=== PATIENT | female | born 1965 | race Caucasian/White ===

== ENCOUNTER 2018-05-04 19:24 | Emergency (ER) | payer MEDICAID ==
[~2018-05-04] VITALS: Ht 149.9 cm; Wt 55.0 kg
[2018-05-04] MEDS ORDERED: KETOROLAC 60MG/2ML VIAL IM ONE (22:45)
[2018-05-04 22:54] VITALS: BP 130/70
== END 2018-05-05 00:18 | disposition home or self-care (01) ==
LOC: ER 19:24
DX: H00.034 Abscess of left upper eyelid (principal); R03.0 Elevated blood-pressure reading, without diagnosis of hypertension; Z90.49 Acquired absence of other specified parts of digestive tract; Z90.710 Acquired absence of both cervix and uterus
CPT/HCPCS: 96372; 99283; J1885

== ENCOUNTER 2021-07-17 02:31 | Emergency (ER) | payer MEDICAID ==
[~2021-07-17] VITALS: Ht 160 cm; Wt 59.0 kg
[2021-07-17 03:02] VITALS: BP 129/63
[2021-07-17 05:38] LABS: CLARITY URINE CLOUDY (CLEAR); COLOR URINE YELLOW (YELLOW); KETONES URINE NEGATIVE (NEGATIVE); LEUKOCYTE ESTERASE URINE 3+ (NEGATIVE); NITRITE URINE NEGATIVE (NEGATIVE); OCCULT BLOOD URINE 3+ (NEGATIVE); PROTEIN URINE NEGATIVE (NEGATIVE); SPECIFIC GRAVITY URINE 1.004 (1.005-1.030); UROBILINOGEN URINE 0.2 E.U./dL (0.2-1.0)
[2021-07-17] MEDS ORDERED: PHEN95TA25 MT (06:04)
[2021-07-17] MEDS ORDERED: CIPR500T5 MT (06:04)
== END 2021-07-17 06:34 | disposition home or self-care (01) ==
LOC: ER 02:31
DX: N39.0 Urinary tract infection, site not specified (principal); Z90.49 Acquired absence of other specified parts of digestive tract; Z98.890 Other specified postprocedural states
CPT/HCPCS: 81003; 87077; 87186; 87210; 99283

== ENCOUNTER 2024-02-06 06:51 | Emergency (ER) | payer MEDICAID ==
[~2024-02-06] VITALS: Ht 154.9 cm; Wt 64.0 kg
[~2024-02-06 06:51] MED LIST: CIPR500T5 MT; PHEN95TA25 MT
[2024-02-06 07:01] VITALS: BP 144/78; PULSE 98; RESP 14; O2SAT 100
[2024-02-06 07:37] LABS: BASOPHILS % 0.8 % (0.0-2.0); EOSINOPHILS % 2.3 % (0.0-5.0); HEMATOCRIT. 39.5 % (36.0-48.0); HEMOGLOBIN. 13.8 g/dL (12.0-16.0); LYMPHOCYTES % 40.1 % (20.0-50.0); MEAN CORPUSCULAR HEMOGLOBIN 32.7 pg (28.0-32.0); MEAN CORPUSCULAR VOLUME 93.6 fL (81.0-99.0); MEAN PLATELET VOLUME 9.7 fl (7.4-10.4); MONOCYTES % 7.7 % (2.0-8.0); NEUTROPHILS % 49.1 % (40.0-76.0); PLATELET 179 x1000/uL (130-400); RED BLOOD CELL COUNT 4.22 mill/uL (4.2-5.4); RED CELL DISTRIBUTION WIDTH 12.8 % (11.6-14.6)
[2024-02-06 07:43] LABS: CHLORIDE 107 mEq/L (98-107); POTASSIUM 3.6 mEq/L (3.5-5.1); SODIUM 140 mEq/L (136-145)
[2024-02-06 07:44] LABS: CALCIUM 9.3 mg/dL (8.7-10.4); CARBON DIOXIDE 24 mEq/L (21-32)
[2024-02-06 07:49] LABS: CREATININE 0.7 mg/dL (0.6-1.0); GLUCOSE 142 mg/dL (70-105); UREA NITROGEN BLOOD 9 mg/dL (9-23)
[2024-02-06 07:51] LABS: ALANINE AMINOTRANSFERASE 21 IU/L (10-49); ALBUMIN 4.3 g/dL (3.2-4.8); ASPARTATE AMINOTRANSFERASE 21 IU/L (<34); BILIRUBIN TOTAL 0.4 mg/dL (0.1-1.0); PROTEIN TOTAL 6.7 g/dL (6.0-8.3)
[2024-02-06] MEDS: MAGNESIUM/ALUMINUM HYDROXIDE/SIMETHICONE 30ML UDC PO ONE (07:54)
[2024-02-06] MEDS: FAMOTIDINE 20MG TABLET PO ONE (07:54)
[2024-02-06 07:55] VITALS: TEMP 98.2
[2024-02-06] MEDS: ACETAMINOPHEN 500MG TABLET PO ONE (07:55)
[2024-02-06 08:25] LABS: BILIRUBIN DIRECT < 0.1 mg/dL (<=3.0)
[2024-02-06 11:10] LABS: CLARITY URINE CLEAR (CLEAR); COLOR URINE YELLOW (YELLOW); GLUCOSE URINE NEGATIVE (NEGATIVE); KETONES URINE NEGATIVE (NEGATIVE); LEUKOCYTE ESTERASE URINE 2+ (NEGATIVE); NITRITE URINE NEGATIVE (NEGATIVE); OCCULT BLOOD URINE NEGATIVE (NEGATIVE); PH URINE 5.5 (4.5-8.0); PROTEIN URINE NEGATIVE (NEGATIVE); SPECIFIC GRAVITY URINE 1.012 (1.005-1.030); UROBILINOGEN URINE 0.2 E.U./dL (0.2-1.0)
[2024-02-06 11:27] LABS: MUCUS URINE 1+ /lpf (< = 2+); SQUAMOUS EPITHELIAL CELL URINE 2+ /lpf (RARE/1+)
[2024-02-06 11:28] LABS: BACTERIA URINE TRACE
[2024-02-06 11:29] LABS: RBC URINE 0-2 /hpf (0-2)
== END 2024-02-06 13:40 | disposition home or self-care (01) ==
LOC: ER 06:51
DX: R10.13 Epigastric pain (principal); M19.90 Unspecified osteoarthritis, unspecified site; Z90.49 Acquired absence of other specified parts of digestive tract; Z98.890 Other specified postprocedural states
CPT/HCPCS: 36415; 71045; 74176; 80048; 80076; 81003; 81025; 85025; 93005; 99285

== ENCOUNTER 2024-08-16 06:58 | Emergency (ER) | payer MEDICAID ==
[~2024-08-16] VITALS: Ht 149.9 cm; Wt 60.0 kg
[2024-08-16 07:13] VITALS: O2SAT 100
[2024-08-16] MEDS: ACETAMINOPHEN 500MG TABLET PO ONE (07:55)
[2024-08-16] MEDS ORDERED: DEXAMETHASONE 10 MG/ML VIAL IV ONE (08:45)
[2024-08-16] MEDS ORDERED: IBUP-2030 MT (08:56)
[2024-08-16] MEDS: DEXAMETHASONE 10 MG/ML VIAL PO NR (09:03)
[2024-08-16 09:04] VITALS: BP 135/71; PULSE 60; RESP 16; TEMP 37; O2SAT 100
== END 2024-08-16 07:25 | disposition home or self-care (01) ==
LOC: ER 06:58
DX: M25.512 Pain in left shoulder (principal); V89.2XXA Person injured in unspecified motor-vehicle accident, traffic, initial encounter; Y93.89 Activity, other specified; Y92.89 Other specified places as the place of occurrence of the external cause; Y99.9 Unspecified external cause status
CPT/HCPCS: 73030; 99283; J1100